=== PATIENT | female | born 1975 | race Hispanic/Latino ===

== ENCOUNTER 2022-03-14 09:26 | Emergency (ER) | payer OTHER ==
[~2022-03-14] VITALS: Ht 152.4 cm; Wt 68.0 kg
[2022-03-14 10:03] VITALS: BP 147/86
[2022-03-14] MEDS ORDERED: MORPHINE 2 MG SYG ONE (12:34)
[2022-03-14] MEDS ORDERED: IBUP-2070 PO (12:41)
[2022-03-14] MEDS ORDERED: MORPHINE 2 MG SYG IM ONE (13:00)
== END 2022-03-14 13:03 | disposition home or self-care (01) ==
LOC: EDH 09:26
DX: S96.912A Strain of unspecified muscle and tendon at ankle and foot level, left foot, initial encounter (principal); S96.911A Strain of unspecified muscle and tendon at ankle and foot level, right foot, initial encounter; I10 Essential (primary) hypertension; Z98.890 Other specified postprocedural states; W18.39XA Other fall on same level, initial encounter; Y93.89 Activity, other specified; Y92.89 Other specified places as the place of occurrence of the external cause; Y99.8 Other external cause status
CPT/HCPCS: 73610; 96372